=== PATIENT | male | born 1995 | race Caucasian/White ===

== ENCOUNTER 2024-09-02 17:23 | Emergency (ER) | payer OTHER, SELFPAY ==
[2024-09-02 17:31] VITALS: BP 160/120
--- NOTE | 2024-09-02 19:22 | ED.GENMED ---
History of Present Illness
General
Chief Complaint: Skin Surface Trauma
Source: patient and spouse
Exam Limitations: none
Time Seen by Provider: 09/02/24 17:47
Nursing documentation reviewed up to this point in time: agreed with
History of Present Illness
History of Present Illness:
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 Denies any gross contamination unsure when his last tetanus
shot was. Denies any numbness weakness or additional injuries.
Review of Systems
Review of Systems
Allergies reviewed?: Yes
All Other Systems: ROS reviewed and negative except as documented in HPI and ROS
Phy Exam
Physical Exam
Physical Exam:
GENERAL: Alert , in no apparent distress
EYE: pupils equal and reactive
NECK: Supple, no significant adenopathy.
ENT: o/p clr, mmm.
CARDIAC: Regular rate and rhythm .
LUNGS: Clear breath sounds bilaterally, no acute respiratory distress, no wheezes/rales/rhonchi
ABDOMEN: Soft, without focal tenderness, no r/g, no cvat
NEUROLOGICAL: Alert and oriented, no focal neuro deficits
SKIN: 3 cm laceration to the right hand on the dorsal aspect overlying the second metacarpal warm and dry, skin intact.
MUSCULOSKELETAL: No edema, well perfused.
PSYCH: Normal and appropriate interaction.
Course
Orders/Labs/Results
Orders:
Orders
09/02/24 19:22
Tetanus/Diphth/Acelpertussis [Adacel] 0.5 ml IM .ONCE ONE
Vital Signs
Initial and Last Documented VS:
Initial Vital Signs
Pulse Resp BP Pulse Ox
116 18 160/120 97
09/02/24 17:31 09/02/24 17:31 09/02/24 17:31 09/02/24 17:31
Last Documented Vital Signs
Pulse Resp BP Pulse Ox
116 18 160/120 97
09/02/24 17:31 09/02/24 17:31 09/02/24 17:31 09/02/24 17:31
Procedures
Laceration Closure
Right Dorsal Hand:
Status of Wound: clean
Size of Wound in cm: 3
Description of Wound Edges: sharp
Preparation: cleaned with saline
Anesthesia: 1% Lidocaine with epi
Revision/Debridement: routine- no revision and irrigate-direct pressure
Wound exploration: explored to base- no FB and no tendon involvement
Type of Closure: single layer closure
Skin Closure Material: 4-0 nylon
Number of sutures: 6
MDM/Problems Addressed
MDM/Problems Addressed:
29-year-old male presenting to the emergency department today with concerns of a laceration to his right dorsal hand prior to arrival. Very clean in appearance and able to be irrigated thoroughly here explored to its base without signs of foreign
body. This was closed with 5 simple interrupted stitches and 1 [id number]-[id number] stitch due to a small vessel bleed. Otherwise stable for discharge return precautions given. He was given an updated tetanus shot prior to discharge
*Critical Care Note
Total Time (30-74mins, 75-104mins- exclusive of procedures): Not Applicable
ED Attending Note
-
Portions of this chart may have been created with voice recognition software.� Occasional wrong word or��sound alike� substitutions may have occurred due to the inherent limitations of voice recognition software.
Discharge Plan
Departure
Patient Disposition: Home (Routine Discharge)
Date of Disposition: 09/02/24
Time of Disposition: 19:24
Patient with high blood pressure during this ER visit?: No
Condition: Good
Covid-19: Not Applicable
Discharge Problem:
Hand laceration
Instructions: Laceration Repair With Stitches (DC)
Referrals:
NONE,* [Family Provider] -
Activity Restrictions/Additional Instructions:
You came to the emergency department today with concerns of right hand laceration. You had 5 simple interrupted stitches and 1 [id number]-[id number] stitch placed. Please have this removed in 12 to 14 days. In the meantime please keep the area clean
and covered. Return to the emergency department for any worsening, new or concerning symptoms.
Interventions
Interventions:
*Risk Screen - Suicide Last Done: 09/02/24 17:31
*General Assessment Last Done: 09/02/24 17:31
*Neglect/Abuse Screening Last Done: 09/02/24 17:31
ED-Skin Assessment Last Done: 09/02/24 18:00
Discharge Date and Time
Print Language: KENYAN
[2024-09-02] MEDS: ADACEL 0.5 ML IM (19:30)
[2024-09-02 19:40] VITALS: BP 145/93
== END 2024-09-02 19:41 | disposition home or self-care (01) ==
LOC: EMR 17:23
PROVIDERS: EMERGENCY PHYSICIAN Emergency Medicine
DX: S61.411A Laceration without foreign body of right hand, initial encounter (principal); W45.8XXA Other foreign body or object entering through skin, initial encounter; Z23 Encounter for immunization; I10 Essential (primary) hypertension
CPT/HCPCS: 99282; 12002; 90471; 90715